=== PATIENT | male | born 2000 | race African-American/Black ===

== ENCOUNTER 2024-01-18 14:12 | Emergency (ER) | payer SELFPAY ==
[~2024-01-18] VITALS: Ht 167.6 cm; Wt 70.0 kg
[2024-01-18 14:17] VITALS: TEMP 98.7; O2SAT 98
[2024-01-18] MEDS: LEVETIRACETAM 500MG PREMIX 100 ML IV ONE (14:52)
[2024-01-18] MEDS: ONDANSETRON HCL 4MG/2ML INJ IV STA (14:52)
[2024-01-18 15:11] LABS: CHLORIDE 104 mEq/L (98-107); POTASSIUM 3.6 mEq/L (3.5-5.1); SODIUM 137 mEq/L (136-145)
[2024-01-18 15:12] LABS: CALCIUM 9.3 mg/dL (8.7-10.4); CARBON DIOXIDE 27 mEq/L (21-32)
[2024-01-18 15:17] LABS: CREATININE 0.8 mg/dL (0.6-1.3); GLUCOSE 83 mg/dL (70-105); UREA NITROGEN BLOOD 12 mg/dL (9-23)
[2024-01-18 15:18] LABS: BASOPHILS % 0.5 % (0.0-2.0); EOSINOPHILS % 1.2 % (0.0-5.0); HEMATOCRIT. 46.6 % (42.0-52.0); HEMOGLOBIN. 16.2 g/dL (14.0-18.0); LYMPHOCYTES % 41.9 % (20.0-50.0); MEAN CORPUSCULAR HGB CONC 34.7 g/dL (31.0-37.0); MEAN CORPUSCULAR VOLUME 89.3 fL (80.0-94.0); MEAN PLATELET VOLUME 7.6 fl (7.4-10.4); MONOCYTES % 12.5 % (2.0-8.0); NEUTROPHILS % 43.9 % (40.0-76.0); PLATELET 297 x1000/uL (130-400); RED BLOOD CELL COUNT 5.21 mill/uL (4.7-6.1); RED CELL DISTRIBUTION WIDTH 12.7 % (11.6-14.6); WHITE BLOOD COUNT 4.1 x1000/uL (4.5-11.0)
[2024-01-18 15:19] LABS: ALANINE AMINOTRANSFERASE 20 IU/L (10-49); ALBUMIN 4.8 g/dL (3.2-4.8); ASPARTATE AMINOTRANSFERASE 20 IU/L (<34); BILIRUBIN TOTAL 0.9 mg/dL (0.1-1.0); PROTEIN TOTAL 8.2 g/dL (6.0-8.3)
[2024-01-18 16:53] VITALS: BP 126/76; PULSE 87; RESP 16
[2024-01-18] MEDS: KETOROLAC 15MG/ML VIAL IV ONE (17:14)
== END 2024-01-18 18:49 | disposition home or self-care (01) ==
LOC: ER 14:53
DX: R56.9 Unspecified convulsions (principal)
CPT/HCPCS: 99285; 96365; 70450; 71045; 96375; 80053; 85025; 36415; 93005; J1953; J1885; J2405